=== PATIENT | female | born 1985 | race Two or more races ===

== ENCOUNTER 2018-12-31 12:45 | Inpatient (IN) | payer OTHER ==
[~2018-12-31] VITALS: Ht 157.5 cm; Wt 2.7 kg
[2018-12-31] MEDS ORDERED: PRENATABS FA T1 EACH PO (14:40)
[2019-01-07] MEDS ORDERED: PRENATAL + DHA1 EAC1 PO (08:07)
== END 2019-01-09 17:24 | DRG 785 ==
LOC: O/R 12:45 → OB/GYN 01-07 07:00 → SURG-SUITE 01-07 13:13
PROVIDERS: ADMIT Obstetrics & Gynecology
PROC: 0UB70ZZ Excision of Bilateral Fallopian Tubes, Open Approach (ICD-10-PCS; 2019-01-07)
PROC: 4A033R1 Measurement of Arterial Saturation, Peripheral, Percutaneous Approach (ICD-10-PCS; 2019-01-07)
PROC: 4A1HXCZ Monitoring of Products of Conception, Cardiac Rate, External Approach (ICD-10-PCS; 2019-01-07)
PROC: 10D00Z1 Extraction of Products of Conception, Low, Open Approach (ICD-10-PCS; principal; 2019-01-07 07:00)
DX: O82 Encounter for cesarean delivery without indication (principal); O34.211 Maternal care for low transverse scar from previous cesarean delivery; Z22.330 Carrier of Group B streptococcus; Z37.0 Single live birth; Z30.2 Encounter for sterilization; Z3A.39 39 weeks gestation of pregnancy